=== PATIENT | male | born 1940 | race Caucasian/White ===

== ENCOUNTER 2024-01-01 01:10 | Outpatient (CLI) | payer MEDICARE, SELFPAY | END 2024-01-01 01:11 | disposition home or self-care (01) | LOC: AMB 01-29 02:47 | PROVIDERS: Visit Provider Family Medicine | DX: R00.1 Bradycardia, unspecified (principal); I45.10 Unspecified right bundle-branch block | CPT/HCPCS: A0425; A0434 ==